=== PATIENT | male | born 1955 | race Caucasian/White ===

== ENCOUNTER → 2020-12-16 | Outpatient (CLI) | payer OTHER ==
--- NOTE | 2020-12-16 17:45 | RAD ---
MR#: [id number] Date of Study: 12/16/2020 Ordering Physician: CANDACE RESTREPO, Referring Physician: CANDACE RESTREPO, Tech: Dacia Freeman RVT, [facility] APPROVED REPORT Patient Location : OUT-PATIENT Indications Lower Extremity Edema : Limited grayscale images of the bilateral saphenofemoral junctions are grossly unremarkable. The right great saphenous vein measures approximately 4 mm in the left great saphenous vein also ivonne ures 4 mm approximately. Bilateral greater saphenous veins do not reveal any evidence of reflux. Bilateral lesser saphenous veins did not reveal any evidence of reflux. Bilateral isolated groin lymph nodes are noted measuring approximately 4.4 x 2.5 x 0.8 cm. There is a large fluid collection posterior to the knee measuring approximately 4.5 x 3.5 x 1.9 cm an d appears to be a Lockwood's cyst. Critical Notification Critical Value: No <Conclusion> 1. Negative for reflux in the bilateral greater and lesser saphenous veins 2. Bilateral inguinal lymphadenopathy 3. Large fluid collection in the left popliteal fossa, suggestive of a complex Lockwood's cyst. Signed by : Candace Restrepo, Electronically Approved : 12/16/2020 17:45:16
== END ==
LOC: US 09:20 → EDUNIT# 10:00
PROVIDERS: ATTEND Internal Medicine Cardiovascular Disease
DX: R59.0 Localized enlarged lymph nodes (principal); I87.2 Venous insufficiency (chronic) (peripheral)
CPT/HCPCS: 93970

== ENCOUNTER → 2021-01-05 | Outpatient (CLI) | payer OTHER ==
--- NOTE | 2021-01-06 11:31 | CARD ---
MR#: [id number] Date of Study: 01/05/2021 Ordering Physician: CANDACE BUENO, Referring Physician: CANDACE BUENO, Tech: David Mitchell [facility] APPROVED REPORT EXAM: Two-dimensional and M-mode echocardiogram with Doppler and color Doppler. Other Information Quality : GoodHR: 106bpm Rhythm : Tachycardia INDICATION Hypertension RISK FACTORS Hypertension Smoking 2D DIMENSIONS Left Atrium(2D)4.8 (1.6-4.0cm)IVSd1.4 (0.7-1.1cm) Aortic Root(2D)3.1 (2.0-3.7cm)LVDd4.1 (3.9-5.9cm) LVOT Diameter2.1 (1.8-2.4cm)PWd1.4 (0.7-1.1cm) LVDs3.1 (2.5-4.0cm)FS (%) 25.0 % SV37.0 ml Aortic Valve AoV Peak Donald.139.6cm/sAoV VTI24.5cm AO Peak GR.7.8mmHgLVOT Peak Donald.96.0cm/s LVOT VTI 19.17cmAO Mean GR.4mmHg CHIQUI (VMAX)2.87fq6JAN (VTI)2.65cm2 Mitral Valve MV E Uldndeaf88.9cm/sMV E Peak Gr.8mmHg MV DECEL [id number] A Vejqjues362.4cm/s MV E Mean Gr.2mmHgE/A Ratio0.7 Pulmonary Valve PV Peak Veuqmqep46.9cm/sPV Peak Grad.4mmHg Tricuspid Valve TR P. Favsuwel810eo/sTR Peak Gr.22mmHg Pulmonary Vein S1 Sfzsfpwa99.2cm/sD2 Khksilhs80.1cm/s LEFT VENTRICLE The left ventricle is normal size. There is mild to moderate concentric left ventricular hypertrophy. The left ventricular systolic function is normal and the ejection fraction is within low normal rang e. The Ejection Fraction is 50-55%. There is normal LV segmental wall motion. Transmitral Doppler kamala w pattern is Grade I-abnormal relaxation pattern. No left ventricle thrombus noted on this study. The re is no ventricular septal defect visualized. There is no left ventricular aneurysm. There is no mas s noted in the left ventricle. RIGHT VENTRICLE The right ventricle is normal size. There is normal right ventricular wall thickness. The right ventr icular systolic function is normal. ATRIA The left atrium is mildly dilated. The right atrium size is normal. The interatrial septum is intact with no evidence for an atrial septal defect or patent foramen ovale as noted on 2-D or Doppler imagi ng. AORTIC VALVE The aortic valve is mildly sclerotic. Doppler and Color Flow revealed no significant aortic regurgita tion. There is no significant aortic valvular stenosis. There is no aortic valvular vegetation. MITRAL VALVE The mitral valve is normal in structure and function. There is no evidence of mitral valve prolapse. There is no mitral valve stenosis. Doppler and Color Flow revealed no mitral valve regurgitation note d. TRICUSPID VALVE The tricuspid valve is normal in structure and function. Doppler and Color Flow revealed trace tricus pid regurgitation. There is no tricuspid valve prolapse or vegetation. There is no tricuspid valve st enosis. PULMONIC VALVE The pulmonic valve is not well visualized. Doppler and Color Flow revealed no pulmonic valvular regur gitation. There is no pulmonic valvular stenosis. GREAT VESSELS The aortic root is normal in size. The ascending aorta is normal in size. The pulmonary artery is nor mal. The IVC is normal in size and collapses >50% with inspiration. PERICARDIAL EFFUSION There is no pleural effusion. There is no evidence of significant pericardial effusion. Critical Notification Critical Value: No <Conclusion> The left ventricle is normal size. The left ventricular systolic function is normal and the ejection fraction is within low normal range . The Ejection Fraction is 50-55%. There is mild to moderate concentric left ventricular hypertrophy. Doppler and Color Flow revealed no significant aortic regurgitation. There is no significant aortic valvular stenosis. Doppler and Color Flow revealed no mitral valve regurgitation noted. Doppler and Color Flow revealed trace tricuspid regurgitation. Signed by : Darnell Bee MD Electronically Approved : 01/06/2021 11:30:48
== END ==
LOC: ECHO 08:48
PROVIDERS: ATTEND Internal Medicine Cardiovascular Disease
DX: I35.8 Other nonrheumatic aortic valve disorders (principal); I11.9 Hypertensive heart disease without heart failure
CPT/HCPCS: 93306